=== PATIENT | female | born 1930 | race Asian ===

== ENCOUNTER 2018-07-20 07:13 | Emergency (ER) | payer MEDICARE, MEDICAID ==
[~2018-07-20] VITALS: Ht 152.4 cm; Wt 57.0 kg
[2018-07-20] MEDS ORDERED: SODIUM CHLORIDE FLUSH 10ML SYR IVF ONE (07:30)
[2018-07-20 07:37] VITALS: BP 145/96
[2018-07-20] MEDS ORDERED: ASCO500T7 PO (07:56)
[2018-07-20] MEDS ORDERED: LORA-445 PO (07:57)
[2018-07-20] MEDS ORDERED: ASPI-650 PO (07:57)
[2018-07-20] MEDS ORDERED: DOCU100C33 PO (07:58)
[2018-07-20] MEDS ORDERED: UBID50CA PO (07:58)
[2018-07-20] MEDS ORDERED: BISA-49 PO (07:59)
[2018-07-20] MEDS ORDERED: LOSA50TA14 PO (08:00)
[2018-07-20] MEDS ORDERED: METO25TA91 PO (08:00)
[2018-07-20] MEDS ORDERED: FURO-92 PO (08:00)
--- NOTE | 2018-07-20 08:00 | NUR ---
BIB EMS FROM [facility] FOR ABD PAIN AND DISTENTION. LAST BM REPORTED TO BE ON 07/16/18.
[2018-07-20] MEDS ORDERED: POLY17PO5 PO (08:03)
--- NOTE | 2018-07-20 08:05 | NUR ---
PT TO XRAY AT THIS TIME. PT IN NO DISTRESS. VS WNL.
[2018-07-20] MEDS ORDERED: MORP20SO SL (08:06)
[2018-07-20] MEDS ORDERED: AMLO5TAB4 PO (08:07)
[2018-07-20] MEDS ORDERED: NITR0.4T28 SL (08:07)
[2018-07-20] MEDS ORDERED: OMEP40CA6 PO (08:08)
[2018-07-20 08:09] LABS: ALANINE AMINOTRANSFERASE 22 U/L (12-78); ALBUMIN 3.1 g/dL (3.4-5.0); ANION GAP 5 mmol/L (5-15); CALCIUM 8.4 mg/dL (8.5-10.1); CHLORIDE 108 mmol/L (98-107); INTERNATIONAL NORMALIZED RATIO 1.26 (0.93-1.1); PROTHROMBIN TIME 13.1 Seconds (9.6-11.5)
[2018-07-20] MEDS ORDERED: OXYC5CAP2 PO ×2 (08:09)
[2018-07-20 08:14] LABS: ALKALINE PHOSPHATASE 93 U/L (45-117); BILIRUBIN,TOTAL 0.9 mg/dL (0.2-1.0); CREATININE 1.47 mg/dL (0.55-1.02); TOTAL PROTEIN 7.4 g/dL (6.4-8.2)
[2018-07-20 08:31] LABS: MEAN CORPUSCULAR HEMOGLOBIN 29.9 pg (27.0-34.8); MEAN CORPUSCULAR HGB CONC 32.2 g/dL (32.4-35.8); MEAN CORPUSCULAR VOLUME 92.8 fL (80-100); MEAN PLATELET VOLUME 8.8 fL (7.4-10.4); PLATELET COUNT 167 x10^3/uL (130-400); RED BLOOD COUNT 3.59 x10^6/uL (3.82-5.3); RED CELL DISTRIBUTION WIDTH 22.3 % (9.6-15.2)
[2018-07-20 09:03] LABS: MD YES
[2018-07-20 09:05] LABS: BAND#(MANUAL) 0.29 x10^3/uL; BANDS%(MANUAL) 5 % (0-7); BASOS#(MANUAL) 0.12 x10^3/uL (0-0.1); BASOS% (MANUAL) 2 % (0-1); EOS#(MANUAL) 0.23 x10^3/uL (0.0-0.4); EOS% (MANUAL) 4 % (1-7); LYMPH#(MANUAL) 1.16 x10^3/uL (1-3.4); LYMPHS% (MANUAL) 20 % (22-44); MONOS#(MANUAL) 0.52 x10^3/uL (0.3-2.7); MONOS% (MANUAL) 9 % (2-9); SEG#(MANUAL) 3.48 x10^3/uL (1.8-6.8); SEGS% (MANUAL) 60 % (42-75)
[2018-07-20 09:07] LABS: ANISOCYTOSIS 1+; TARGET CELLS 1+
[2018-07-20 09:08] LABS: <PLATELET ESTIMATE> ADEQUATE; <PLT MORPHOLOGY> NORMAL PLT MORPH; OVALOCYTES 1+; POLYCHROMASIA 1+
[2018-07-20] MEDS ORDERED: FUROSEMIDE 40 MG/4 ML IV ONE (09:30)
[2018-07-20] MEDS ORDERED: FUROSEMIDE 40 MG/4 ML ONE (09:35)
[2018-07-20 10:08] LABS: CULTURE INDICATED? NO; MICROSCOPIC NOT IND
[2018-07-20 10:14] LABS: TROPONIN I < 0.015 ng/mL (0.000-0.045)
[2018-07-20] MEDS ORDERED: FUROSEMIDE 40 MG TABLET ONE (10:42)
[2018-07-20] MEDS ORDERED: FUROSEMIDE 80 MG TABLET PO ONE (11:00)
--- NOTE | 2018-07-20 11:32 | NUR ---
PT MEDICATED WITH LASIX 80MG PO. ARRANGEMENTS FOR TRANSPORT WITH [facility] ARE BEING MADE.
--- NOTE | 2018-07-20 13:07 | NUR ---
Patient/Caregiver given discharge instructions and they have confirmed that they understand the instructions. Patient ambulatory with steady gait.
--- NOTE | 2018-07-20 13:08 | NUR ---
CALLED RN RACHAEL AT [facility] AT [phone], AND UPDATED HER ON PATIENT'S PLAN OF CARE AND THAT GRANDSON, ADAM, IS TAKING PATIENT BACK TO HER FACILITY WITH OXYGEN. RACHAEL RN TO SEE PATIENT AT HER FACILITY, [facility].
== END 2018-07-20 13:08 | disposition home or self-care (01) ==
LOC: ED 10:39
DX: I50.1 Left ventricular failure, unspecified (principal); I13.0 Hypertensive heart and chronic kidney disease with heart failure and stage 1 through stage 4 chronic kidney disease, or unspecified chronic kidney disease; N18.9 Chronic kidney disease, unspecified; I48.91 Unspecified atrial fibrillation; R30.0 Dysuria; J44.9 Chronic obstructive pulmonary disease, unspecified; Z99.81 Dependence on supplemental oxygen
CPT/HCPCS: 36415; 74022; 80053; 81003; 83605; 83690; 83880; 84145; 84484; 85025; 85610; 85730; 93005; 99284